=== PATIENT | female | born 1960 | race Caucasian/White ===

== ENCOUNTER 2018-01-02 14:25 | Outpatient (CLI) | payer OTHER, MEDICARE | END 2018-01-02 14:26 | disposition home or self-care (01) | LOC: BICMAMMO 14:25 | DX: Z12.31 Encounter for screening mammogram for malignant neoplasm of breast (principal); Z13.820 Encounter for screening for osteoporosis; Z78.0 Asymptomatic menopausal state; Z80.3 Family history of malignant neoplasm of breast | CPT/HCPCS: 77063; 77067; 77080 ==

== ENCOUNTER 2018-04-17 14:31 | Outpatient (CLI) | payer OTHER, MEDICARE | END 2018-04-17 14:32 | disposition home or self-care (01) | LOC: CTENTCT 14:31 | PROVIDERS: ATTEND Otolaryngology Plastic Surgery within the Head & Neck | DX: J01.90 Acute sinusitis, unspecified (principal) | CPT/HCPCS: 70486 ==

== ENCOUNTER 2019-10-05 11:26 | Outpatient (CLI) | payer OTHER, MEDICARE ==
--- NOTE | 2019-10-05 12:27 | ULT ---
HEPATIC ULTRASOUND: Date: 10/05/2019 HISTORY: Abdominal pain. FINDINGS: Real-time imaging of the upper abdomen shows the gallbladder to have been removed. Common duct is 6 m m. Liver measures 16 cm in length and shows no focal abnormalities. Spleen is 9.8 cm. Pancreas region appears unremarkable. Right kidney not obstructed. DOPPLER EVALUATION WITH SPECTRAL ANALYSIS: Normal flow pattern shown within the liver. IMPRESSION: Post cholecystectomy change. Otherwise, unremarkable hepatic ultrasound. POS: [facility]
== END 2019-10-05 11:27 | disposition home or self-care (01) ==
LOC: SCSULT 11:26
PROVIDERS: ATTEND Internal Medicine Gastroenterology
DX: R10.30 Lower abdominal pain, unspecified (principal); R14.3 Flatulence; R14.2 Eructation; R14.1 Gas pain; R19.4 Change in bowel habit; Z90.49 Acquired absence of other specified parts of digestive tract
CPT/HCPCS: 76705

== ENCOUNTER 2020-05-26 14:12 | Outpatient (CLI) | payer OTHER ==
--- NOTE | 2020-05-26 15:19 | BD ---
DEXA BONE DENSITOMETRY: (Dual energy X-ray Absorptiometry) DATE: 05/26/2020 HISTORY: 59-year-old female for age-related, postmenopausal, osteoporosis screening examination. Height: 62 Weight: 177 lbs Age of menopause: 40 years FINDINGS: The bone mineral density (BMD) is given in grams per square centimeter (g/cm2): LUMBAR SPINE: BMD(g/cm2) T-score Z-score L1: 1.141 1.4 2.5 L2: 1.140 1.0 2.2 L3: 1.247 1.5 2.8 L4: 1.191 1.2 2.5 Total: 1.185 1.3 2.5 HIP: Femoral neck: 0.804 -0.4 0.6 Total: 0.989 0.4 1.1 IMPRESSION: 1) The mean bone mineral density of the lumbar spine is normal. Fracture risk is not increased. 2) The bone mineral density of the femoral neck is normal. Fracture risk is not increased. BAILEY Cardona POS: AH
== END 2020-05-26 14:13 | disposition home or self-care (01) ==
LOC: BICMAMMO 14:12
PROVIDERS: ATTEND Nurse Practitioner Family
DX: Z13.820 Encounter for screening for osteoporosis (principal); Z78.0 Asymptomatic menopausal state
CPT/HCPCS: 77080

== ENCOUNTER 2020-06-09 13:41 | Outpatient (CLI) | payer OTHER, MEDICARE ==
--- NOTE | 2020-06-09 14:39 | CT ---
CT LOW DOSE LUNG SCAN PERFORMED WITHOUT CONTRAST ENHANCEMENT: Date: 06/09/2020 HISTORY: Patient is a current smoker with a history of 1/2 pack per day for 40 years. FINDINGS: The lungs are clear of any infiltrative process. No bronchiectatic change or any emphysematous type c hange visualized. No pulmonary nodules are seen. Mediastinal structures appear unremarkable. There are coronary calcifications. Visualized liver parenchyma shows no focal findings. Gallbladder has been removed. IMPRESSION: 1. Lung-RADS Category 1 - Negative. Annual follow-up is recommended. 2. Lung-RADS Category 2 - This category is given for the presence of coronary atherosclerosis. POS: [facility]
== END 2020-06-09 13:42 | disposition home or self-care (01) ==
LOC: BICCT 13:41
PROVIDERS: ATTEND Nurse Practitioner Family
DX: Z12.2 Encounter for screening for malignant neoplasm of respiratory organs (principal); F17.210 Nicotine dependence, cigarettes, uncomplicated; I25.10 Atherosclerotic heart disease of native coronary artery without angina pectoris
CPT/HCPCS: G0297

== ENCOUNTER 2021-04-15 13:49 | Outpatient (CLI) | payer OTHER, MEDICARE | END 2021-04-15 13:50 | disposition home or self-care (01) | LOC: DTY/OP 13:49 | PROVIDERS: ATTEND Student in an Organized Health Care Education/Training Program | DX: Z71.3 Dietary counseling and surveillance (principal); Z68.31 Body mass index [BMI] 31.0-31.9, adult | CPT/HCPCS: 97802 ==

== ENCOUNTER 2021-06-22 12:35 | Outpatient (CLI) | payer OTHER, MEDICARE | END 2021-06-22 12:36 | disposition home or self-care (01) | LOC: BICMAMMO 12:35 | PROVIDERS: ATTEND Student in an Organized Health Care Education/Training Program | DX: Z12.31 Encounter for screening mammogram for malignant neoplasm of breast (principal); Z80.3 Family history of malignant neoplasm of breast | CPT/HCPCS: 77063; 77067 ==

== ENCOUNTER 2023-05-20 12:54 | Outpatient (CLI) | payer OTHER, MEDICARE ==
[2023-05-20 13:52] LABS: #Basophils 0.1 10x3/uL (0.0-0.2); #Eosinphils 0.3 10x3/uL (0.0-0.5); #Monocytes 0.5 10x3/uL (0.0-1.1); #Neutrophils 5.4 10x3/uL (1.5-8.4); %Eosinophils 3.1 % (0.0-6.0); %Lymphocytes 37.4 % (18.0-47.0); %Monocytes 4.5 % (0.0-10.0); %Neutrophils 53.7 % (40.0-75.0); Hematocrit 44.2 % (34.9-44.5); Hemoglobin 14.1 g/dL (12.0-15.5); Mean Corpuscular HGB CONC 31.9 g/dL (32.0-36.0); Mean Corpuscular Hemoglobin 29.3 pg (27.0-33.0); Mean Corpuscular Volume 91.7 fl (81.6-98.3); Mean Platelet Volume 10.5 fl (7.4-10.4); Platelet Count 268 10x3/uL (150-450); RBC Distribution Width 12.9 % (11.5-14.5); Red Blood Cell (RBC) Count 4.82 10x6/uL (3.90-5.03); White Blood Cell (WBC) Count 10.1 10x3/uL (3.5-10.5)
[2023-05-20 14:10] LABS: Anion Gap 14 mmol/L (10-20); BUN (Urea Nitrogen) 9 mg/dL (9.8-20.1); Calc. Creatinine Clearance 0 mL/min (70-130); Calcium 9.3 mg/dL (7.8-10.44); Carbon Dioxide 27 mmol/L (22-29); Chloride 105 mmol/L (98-107); Estimated GFR 76; Glucose 116 mg/dL (70-105); Potassium 3.6 mmol/L (3.5-5.1); Sodium 142 mmol/L (136-145)
[2023-05-20] MEDS ORDERED: Iopamidol 300 61% 100 ML VIAL FS ONE (15:49)
== END 2023-05-20 12:55 | disposition home or self-care (01) ==
LOC: LABBT 12:54
PROVIDERS: ATTEND Orthopaedic Surgery
DX: Z01.818 Encounter for other preprocedural examination (principal); S83.241A Other tear of medial meniscus, current injury, right knee, initial encounter
CPT/HCPCS: 71046; 80048; 85025; Q9967

== ENCOUNTER 2023-06-03 07:38 | Day surgery (SDC) | payer OTHER, MEDICARE ==
[2023-05-20 13:55] VITALS: BMI 32.0
[2023-06-03] MEDS ORDERED: EPINEPHrine 1 MG/ML AMP ONE (08:17)
[2023-06-03] MEDS ORDERED: Lidocaine 1% (PF) 30 ML VIAL ONE (08:17)
[2023-06-03] MEDS ORDERED: Bupivacaine PF 0.5% 30 ML VIAL ONE (08:17)
[2023-06-03] MEDS ORDERED: PROPOFOL 20 ML ONE (08:17)
[2023-06-03] MEDS ORDERED: Lidocaine 2% PF 5 ML VIAL ONE (08:17)
[2023-06-03] MEDS ORDERED: CEFAZOLIN 2 GM VIAL ONE (09:41)
[2023-06-03] MEDS ORDERED: Sodium Chloride 0.9% 0 ML ONE (09:41)
[2023-06-03] MEDS ORDERED: LevoFLOXacin 500 mg/D5W 100 ML BAG ONE (09:58)
[2023-06-03] MEDS ORDERED: Clindamycin/D5W 900 mg/50 ml Premix Bag ONE (09:58)
[2023-06-03] MEDS ORDERED: PROPOFOL 200 MG/20 ML VIAL ONE (10:11)
[2023-06-03] MEDS ORDERED: Lidocaine 1% PF 5 ML VIAL ONE (10:11)
[2023-06-03] MEDS ORDERED: Ondansetron PF 4 MG/2 ML Vial ONE ×2 (10:11→10:35)
== END 2023-06-03 13:00 | disposition home or self-care (01) ==
LOC: SDC 07:38
PROVIDERS: ATTEND Orthopaedic Surgery
PROC: 0SBC4ZZ Excision of Right Knee Joint, Percutaneous Endoscopic Approach (ICD-10-PCS; principal; 2023-06-03)
DX: S83.241A Other tear of medial meniscus, current injury, right knee, initial encounter (principal); M23.91 Unspecified internal derangement of right knee; E03.9 Hypothyroidism, unspecified; F17.210 Nicotine dependence, cigarettes, uncomplicated; F41.9 Anxiety disorder, unspecified; Z86.16 Personal history of COVID-19; Z90.710 Acquired absence of both cervix and uterus; Z90.49 Acquired absence of other specified parts of digestive tract; Z79.890 Hormone replacement therapy; Z79.899 Other long term (current) drug therapy; Z88.5 Allergy status to narcotic agent; X58.XXXA Exposure to other specified factors, initial encounter
CPT/HCPCS: J0171; J1956; J2001; J2405; J2704; J3490; S0020

== ENCOUNTER 2023-08-03 14:31 | Outpatient (CLI) | payer OTHER, MEDICARE | END 2023-08-03 14:32 | disposition home or self-care (01) | LOC: BICCT 14:31 | PROVIDERS: ATTEND Family Medicine | DX: R05.3 Chronic cough (principal) | CPT/HCPCS: 71250 ==

== ENCOUNTER 2024-02-01 12:58 | Outpatient (CLI) | payer OTHER, MEDICARE | END 2024-02-01 12:59 | disposition home or self-care (01) | LOC: BICCT 12:58 | PROVIDERS: ATTEND Physician Assistant Medical | DX: R10.13 Epigastric pain (principal); R10.30 Lower abdominal pain, unspecified; R11.0 Nausea; R14.1 Gas pain; K57.30 Diverticulosis of large intestine without perforation or abscess without bleeding; I70.90 Unspecified atherosclerosis | CPT/HCPCS: 74177; 82565 ==

== ENCOUNTER 2024-03-05 14:06 | Outpatient (CLI) | payer OTHER, MEDICARE | END 2024-03-05 14:07 | disposition home or self-care (01) | LOC: BICULT 14:06 | PROVIDERS: ATTEND Family Medicine | DX: R31.9 Hematuria, unspecified (principal) | CPT/HCPCS: 76770 ==

== ENCOUNTER 2024-07-25 14:07 | Outpatient (CLI) | payer OTHER, MEDICARE | END 2024-07-25 14:08 | disposition home or self-care (01) | LOC: BICULT 14:07 | DX: R79.89 Other specified abnormal findings of blood chemistry (principal); E03.4 Atrophy of thyroid (acquired) | CPT/HCPCS: 76536 ==

== ENCOUNTER 2025-08-22 13:54 | Outpatient (CLI) | payer OTHER, MEDICARE | END 2025-08-22 13:55 | disposition home or self-care (01) | LOC: CT 13:54 | DX: R51.9 Headache, unspecified (principal) | CPT/HCPCS: 70450 ==